=== PATIENT | female | born 1985 | race Two or more races ===

== ENCOUNTER 2021-11-25 08:42 | Emergency (ER) | payer OTHER ==
[~2021-11-25] VITALS: Ht 167.6 cm; Wt 79.0 kg
[2021-11-25] MEDS ORDERED: IBUPROFEN 400MG TABLET PO ONE (09:15)
[2021-11-25] MEDS ORDERED: ACETAMINOPHEN 325MG TABLET PO ONE (09:15)
[2021-11-25 09:19] VITALS: BP 122/91
[2021-11-25] MEDS ORDERED: IBUP-2028 MT (10:01)
[2021-11-25] MEDS ORDERED: METH-653 MT (10:01)
== END 2021-11-25 10:23 | disposition home or self-care (01) ==
LOC: ER 09:55
DX: S29.012A Strain of muscle and tendon of back wall of thorax, initial encounter (principal); X58.XXXA Exposure to other specified factors, initial encounter; Y93.89 Activity, other specified; Y92.018 Other place in single-family (private) house as the place of occurrence of the external cause
CPT/HCPCS: 71046; 99283

== ENCOUNTER 2024-09-04 20:09 | Emergency (ER) | payer SELFPAY ==
[~2024-09-04] VITALS: Ht 157.5 cm; Wt 66.4 kg
[~2024-09-04 20:09] MED LIST: IBUP-2028 MT; METH-653 MT
[2024-09-04 20:44] VITALS: O2SAT 100
[2024-09-05] MEDS ORDERED: IBUP-2029 MT (00:55)
[2024-09-05 01:15] VITALS: BP 163/100; PULSE 60; RESP 18; TEMP 36.7; O2SAT 100
== END 2024-09-05 02:50 | disposition home or self-care (01) ==
LOC: ER 20:09
DX: M25.572 Pain in left ankle and joints of left foot (principal); X50.1XXA Overexertion from prolonged static or awkward postures, initial encounter; Y93.89 Activity, other specified; Y92.89 Other specified places as the place of occurrence of the external cause; Y99.8 Other external cause status
CPT/HCPCS: 73610; 73630; 81025; 99284